=== PATIENT | female | born 1960 | race Caucasian/White ===

== ENCOUNTER 2021-04-21 10:10 | Inpatient (IN) | payer OTHER ==
[2021-04-21] MEDS ORDERED: LABETALOL HCL 5 MG/1 ML (100MG/20 ML VIAL) IVPUSH ONE ×2 (10:19→12:47)
[2021-04-21] MEDS ORDERED: LABETALOL HCL 5 MG/1 ML (100MG/20 ML VIAL) ONE (10:21)
[2021-04-21 10:47] LABS: BASO % 2.5 % (0-2.0); EOS % 2.5 % (0-4.5); HEMATOCRIT 43.3 % (32.4-45.2); HEMOGLOBIN 14.8 GM/dl (10.7-15.3); LYMPH % 32.6 % (8-40); MCH 31.3 pg (25.7-33.7); MCHC 34.1 g/dl (32.0-36.0); MEAN CELL VOLUME 91.9 fl (80-96); MEAN PLT VOLUME 7.9 fl (7.5-11.1); MONO % 5.2 % (3.8-10.2); NEUT % 57.2 % (42.8-82.8); PLATELET COUNT 302 10^3/uL (134-434); RBC 4.71 M/mm3 (3.60-5.2); WHITE BLOOD COUNT 7.4 K/mm3 (4.0-10.8)
[2021-04-21 10:52] LABS: ACTIVATED PTT 30.8 SECONDS (25.2-36.5)
[2021-04-21 10:57] LABS: INR 1.01 (0.82-1.09); PROTHROMBIN TIME (PATIENT) 11.2 SEC (10.2-13.0)
[2021-04-21 11:04] LABS: ALBUMIN 4.4 g/dl (3.4-5.0); ALK PHOS 92 U/L (45-117); ANION GAP 13 MMOL/L (8-16); BILIRUBIN,TOTAL 0.6 mg/dl (0.2-1); CALCIUM 9.5 mg/dl (8.5-10); CHLORIDE 94 mmol/L (98-107); CHOLESTEROL 331 mg/dl (50-200); CO2 26 mmol/L (21-32); CREATININE 0.9 mg/dl (0.55-1.3); GLUCOSE,RANDOM 366 mg/dl (74-106); HDL CHOLESTEROL 53 mg/dl (40-60); SGOT/AST 17 U/L (15-37); SGPT/ALT 28 U/L (13-61); SODIUM 133 mmol/L (136-145); TOT PROT 7.8 g/dl (6.4-8.2); TRIGLYCERIDES 380 mg/dl (0-150)
[2021-04-21] MEDS ORDERED: INSULIN (NOVOLOG) ASPART 100 UNITS/ML 10ML VIAL SQ ONE (11:12)
[2021-04-21] MEDS ORDERED: INSULIN (NOVOLOG) ASPART 100 UNITS/ML 10ML VIAL ONE (11:20)
[2021-04-21 12:19] LABS: LDL CHOLESTEROL (ONLY SJRH) 200 mg/dL (5-100)
[2021-04-21] MEDS ORDERED: ONDANSETRON *ODT* 4 MG TABLET ONE (12:50)
[2021-04-21] MEDS ORDERED: IBUPROFEN 600 MG TABLET (FP) PO ONE (12:50)
[2021-04-21 15:16] VITALS: BMI 35.2
[2021-04-21] MEDS: INSULIN SLIDING SCALE (NOVOLOG) 1 VIAL SQ SCH ×2 (16:20→21:01)
[2021-04-21] MEDS ORDERED: LISINOPRIL 10 MG TABLET PO ONE (17:27)
[2021-04-21 20:30] LABS: EPITHELIAL CELLS FEW /hpf
[2021-04-21] MEDS: LABETALOL HCL 200 MG TABLET (FP) PO SCH (21:02)
[2021-04-21] MEDS: ATORVASTATIN CA 40 MG TABLET (FP) PO SCH (21:02)
[2021-04-22] MEDS: INSULIN SLIDING SCALE (NOVOLOG) 1 VIAL SQ SCH ×4 (06:42→22:17)
[2021-04-22 08:29] LABS: BASO % 3.7 % (0-2.0); EOS % 1.8 % (0-4.5); HEMATOCRIT 37.4 % (32.4-45.2); HEMOGLOBIN 12.3 GM/dl (10.7-15.3); LYMPH % 32.6 % (8-40); MCH 30.2 pg (25.7-33.7); MEAN CELL VOLUME 91.6 fl (80-96); MEAN PLT VOLUME 7.9 fl (7.5-11.1); MONO % 5.7 % (3.8-10.2); NEUT % 56.2 % (42.8-82.8); PLATELET COUNT 302 10^3/uL (134-434); RBC 4.08 M/mm3 (3.60-5.2); RDW 12.2 % (11.6-15.6); WHITE BLOOD COUNT 7.6 K/mm3 (4.0-10.8)
[2021-04-22 08:50] LABS: ALBUMIN 3.6 g/dl (3.4-5.0); BILIRUBIN,TOTAL 0.7 mg/dl (0.2-1); CALCIUM 8.9 mg/dl (8.5-10); CREATININE 1.4 mg/dl (0.55-1.3); TOT PROT 6.6 g/dl (6.4-8.2)
[2021-04-22] MEDS: ASPIRIN COATED 81 MG TABLET.EC PO SCH (09:14)
[2021-04-22] MEDS: ENOXAPARIN NA (PORCINE) 40 MG/0.4 ML DISP.SYRIN SQ SCH (09:14)
[2021-04-22] MEDS ORDERED: ASPIRIN 325 MG ENTERIC COATED TABLET (FP) PO SCH (10:00)
[2021-04-22] MEDS ORDERED: LISINOPRIL 10 MG TABLET PO SCH (10:00)
[2021-04-22] MEDS: LISINOPRIL 20 MG TABLET PO SCH (10:47)
[2021-04-22] MEDS: LABETALOL HCL 200 MG TABLET (FP) PO SCH ×2 (10:47→21:46)
[2021-04-22] MEDS: CLOPIDOGREL BISULFATE 75 MG TABLET (FP) PO SCH (15:39)
[2021-04-22] MEDS: ATORVASTATIN CA 40 MG TABLET (FP) PO SCH (21:46)
[2021-04-23] MEDS: INSULIN SLIDING SCALE (NOVOLOG) 1 VIAL SQ SCH ×4 (06:35→21:56)
[2021-04-23 08:44] LABS: BASO % 1.4 % (0-2.0); HEMATOCRIT 36.9 % (32.4-45.2); HEMOGLOBIN 12.8 GM/dl (10.7-15.3); LYMPH % 38.3 % (8-40); MCH 31.7 pg (25.7-33.7); MCHC 34.7 g/dl (32.0-36.0); MEAN CELL VOLUME 91.4 fl (80-96); MEAN PLT VOLUME 7.7 fl (7.5-11.1); MONO % 4.7 % (3.8-10.2); NEUT % 52.6 % (42.8-82.8); PLATELET COUNT 288 10^3/uL (134-434); RBC 4.04 M/mm3 (3.60-5.2); RDW 11.9 % (11.6-15.6); WHITE BLOOD COUNT 7.4 K/mm3 (4.0-10.8)
[2021-04-23 08:59] LABS: ALBUMIN 3.7 g/dl (3.4-5.0); BILIRUBIN,TOTAL 0.8 mg/dl (0.2-1); CALCIUM 9.4 mg/dl (8.5-10); MAGNESIUM 2.2 mg/dL (1.8-2.4); TOT PROT 6.5 g/dl (6.4-8.2)
[2021-04-23] MEDS: CLOPIDOGREL BISULFATE 75 MG TABLET (FP) PO SCH (09:50)
[2021-04-23] MEDS: LISINOPRIL 20 MG TABLET PO SCH (09:50)
[2021-04-23] MEDS: ASPIRIN COATED 81 MG TABLET.EC PO SCH (09:50)
[2021-04-23] MEDS: ENOXAPARIN NA (PORCINE) 40 MG/0.4 ML DISP.SYRIN SQ SCH (09:51)
[2021-04-23] MEDS: LABETALOL HCL 200 MG TABLET (FP) PO SCH ×3 (09:51→21:50)
[2021-04-23] MEDS ORDERED: ATORVASTATIN CA 40 MG TABLET (FP) PO SCH (22:00)
[2021-04-23] MEDS ORDERED: INSULIN (LEVEMIR) 100 UNITS/ML UNITS SQ SCH (22:00)
[2021-04-24] MEDS: INSULIN SLIDING SCALE (NOVOLOG) 1 VIAL SQ SCH ×2 (06:36→12:40)
[2021-04-24] MEDS: CLOPIDOGREL BISULFATE 75 MG TABLET (FP) PO SCH (09:31)
[2021-04-24] MEDS: LISINOPRIL 20 MG TABLET PO SCH (09:32)
[2021-04-24] MEDS: ASPIRIN COATED 81 MG TABLET.EC PO SCH (09:32)
[2021-04-24] MEDS: ENOXAPARIN NA (PORCINE) 40 MG/0.4 ML DISP.SYRIN SQ SCH (09:33)
[2021-04-24] MEDS: LABETALOL HCL 200 MG TABLET (FP) PO SCH (09:34)
[2021-04-24 09:36] VITALS: PULSE 71; TEMP 98.8
[2021-04-24 14:49] VITALS: BP 134/63
== END 2021-04-24 16:05 | disposition home or self-care (01) | DRG 45 ==
LOC: FER 10:10 → FM/S 11:22
PROVIDERS: ADMIT Internal Medicine; ATTEND Nurse Practitioner Acute Care
DX: I63.9 Cerebral infarction, unspecified (principal); I69.354 Hemiplegia and hemiparesis following cerebral infarction affecting left non-dominant side; I16.1 Hypertensive emergency; I10 Essential (primary) hypertension; E78.5 Hyperlipidemia, unspecified; E11.9 Type 2 diabetes mellitus without complications; E66.9 Obesity, unspecified; Z68.35 Body mass index [BMI] 35.0-35.9, adult
CPT/HCPCS: 36415; 70450-TC; 70551-TC; 71045-TC-FY; 80053; 80061; 81003; 81015; 82550; 82962; 83036; 83735; 84484; 85025; 85610; 85730; 86850; 86900; 86901; 93005; 93306-TC; 93880-TC; 97116-GP; 97163-GP; 99285-25; C9803; U0003; U0005